=== PATIENT | female | born 1965 | race Native Hawaiian/Other Pacific Islander ===

== ENCOUNTER 2016-08-21 07:55 | Outpatient (CLI) | payer OTHER | END 2016-08-21 19:59 | disposition home or self-care (01) | LOC: CT 07:55 | DX: R10.32 Left lower quadrant pain (principal) | CPT/HCPCS: Q9963 ==

== ENCOUNTER 2016-08-28 08:44 | Outpatient (CLI) | payer OTHER ==
[2016-08-28 10:28] LABS: POTASSIUM 3.9 mmol/L (3.6-5.2); SODIUM 139 mmol/L (136-145)
[2016-08-28 10:29] LABS: PLATELET COUNT 346 K/uL (152-353)
== END 2016-08-28 09:45 | disposition home or self-care (01) ==
LOC: LABW 08:44
PROVIDERS: Family Medicine
DX: R91.8 Other nonspecific abnormal finding of lung field (principal); Z13.1 Encounter for screening for diabetes mellitus; E78.2 Mixed hyperlipidemia; R70.0 Elevated erythrocyte sedimentation rate; K57.30 Diverticulosis of large intestine without perforation or abscess without bleeding
CPT/HCPCS: 36415; 80053; 83036; 85027; 85651; 86039; 86140

== ENCOUNTER 2016-09-05 07:53 | Outpatient (CLI) | payer OTHER | END 2016-09-05 19:06 | disposition home or self-care (01) | LOC: CT 07:53 | DX: R91.8 Other nonspecific abnormal finding of lung field (principal) | CPT/HCPCS: 87070; 87205; Q9963 ==

== ENCOUNTER 2016-10-15 13:33 | Outpatient (CLI) | payer OTHER | END 2016-10-15 19:56 | disposition home or self-care (01) | LOC: RESP 13:33 | DX: D83.8 Other common variable immunodeficiencies (principal); G90.4 Autonomic dysreflexia; J45.991 Cough variant asthma; G25.81 Restless legs syndrome; M06.4 Inflammatory polyarthropathy; J20.0 Acute bronchitis due to Mycoplasma pneumoniae; R76.8 Other specified abnormal immunological findings in serum ==

== ENCOUNTER 2021-03-21 12:38 | Outpatient (CLI) | payer OTHER ==
[~2021-03-21] VITALS: Ht 157.5 cm; Wt 70.3 kg
== END 2021-03-21 19:12 | disposition home or self-care (01) ==
LOC: INF 12:38
PROVIDERS: ATTEND Family Medicine
DX: U07.1 COVID-19 (principal); Z23 Encounter for immunization
CPT/HCPCS: 96365; M0244

== ENCOUNTER 2022-08-19 07:55 | Outpatient (CLI) | payer OTHER | END 2022-08-19 19:04 | disposition home or self-care (01) | LOC: LAB 07:55 | PROVIDERS: ATTEND Family Medicine | DX: Z76.89 Persons encountering health services in other specified circumstances (principal); Z79.890 Hormone replacement therapy | CPT/HCPCS: 36415; 82670; 83001; 84402; 84403; 84436; 84481 ==